=== PATIENT | female | born 1985 | race Asian ===

== ENCOUNTER 2016-12-25 00:03 | Emergency (ER) | payer MEDICAID ==
[~2016-12-25] VITALS: Ht 152.4 cm; Wt 52.8 kg
[2016-12-25] MEDS ORDERED: SODIUM CHLORIDE 0.9% 1,000ML IVBOLUS ONE (01:00)
[2016-12-25 01:05] LABS: HEMOGLOBIN 12.6 g/dL (11.7-16.4)
[2016-12-25 01:17] LABS: ASPARTATE AMINO TRANSFERASE 38 U/L (15-37); BLOOD UREA NITROGEN 9 mg/dL (7-18)
[2016-12-25 02:27] VITALS: BP 114/58
== END 2016-12-25 02:32 | disposition home or self-care (01) ==
LOC: ED 02:30
DX: R55 Syncope and collapse (principal); R53.1 Weakness
CPT/HCPCS: 36415; 80053; 84443; 84703; 85025; 93005; 96360; 99285; J7030